=== PATIENT | female | born 1960 | race Caucasian/White ===

== ENCOUNTER → 2017-06-04 | Outpatient (CLI) | payer BC ==
[~2017-06-04] MED LIST: ACET1TAB38 PO; BUPR150T8 PO; ESTR1PAT27 TD
--- NOTE | 2017-06-04 16:21 | DIREP ---
PROCEDURE:CT UPPER EXTREMITY-LT W/O COMPARISON:None. INDICATIONS:LEFT PROXIMAL HUMERUS FX X 5 DAYS TECHNIQUE:Multi-planar CT images of the upper extremity were created without intravenous contrast. FINDINGS: BONES:There is a comminuted fracture involving the proximal humerus. This spares the articular surface of the proximal humerus. There are numerous subcentimeter fragments. Largest fragment is seen laterally, measuring 2.6-2.4 cm in diameter. No intra-articular fragments are identified. Scapula, and distal clavicle are intact. There is an old ununited fracture involving the mid portion of left clavicle clavicle. SOFT TISSUES:Normal. OTHER:Negative. CONCLUSION:Heavily comminuted fracture involving the proximal left humerus, minimally displaced. No intra-articular fragments. Visualized portion of scapula intact. 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 Dictated by: Joe Powell MD on 06/04/2017 at 04:15 PM
== END | disposition home or self-care (01) ==
LOC: RAD 11:03
PROVIDERS: ATTEND Orthopaedic Surgery
DX: S42.292D Other displaced fracture of upper end of left humerus, subsequent encounter for fracture with routine healing (principal); X58.XXXD Exposure to other specified factors, subsequent encounter
CPT/HCPCS: 73200

== ENCOUNTER → 2017-06-05 | Day surgery (SDC) | payer BC ==
[2017-06-04 14:12] LABS: HEMOGLOBIN 10.8 g/dL (12.0-15.0); MEAN CELL HGB 30.2 pg (26-34); MEAN CELL HGB CONCENTRATION 32.5 g/dL (33-37); MEAN CORP VOLUME 92.7 fL (78-100); MEAN PLATELET VOLUME 9.3 fL (7.8-11.0); RED CELL DISTRIBUTION WIDTH 13.1 % (11.5-14.5); WHITE BLOOD CELL 5.8 10^3/uL (4.5-11.0)
--- NOTE | 2017-06-04 14:29 | PCM.EKG ---
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
[2017-06-04 14:44] LABS: CALCIUM 8.7 mg/dL (8.4-10.5); CARBON DIOXIDE 26.1 mmol/L (20.0-32)
[~2017-06-05] VITALS: Ht 165.1 cm; Wt 63.5 kg
[2017-06-05] VITALS (12 sets, daily range): BP systolic 117–146; BP diastolic 71–95
[~2017-06-05] MED LIST changes: +ANCEF ONE; +DECADRON ONE; +DEMEROL ONE; +DIPRIVAN IV ONE; +DURAMORPH ONE; +LACTATED RINGERS 1,000 ML IV SCH; +LIDOCAINE 2% VIAL ONE; +LOPRESSER ONE; +MORPHINE SULFATE IV PRN; +NAROPIN 0.5% 5 MG/ML VIAL ONE; +NEOSTIGMINE ONE; +NS 100ML 100 ML IV ONE; +PHENERGAN IV PRN; +QUELICIN ONE; +SODIUM CHLORIDE IR ONE; +SUBLIMAZE IV PRN; +SUBLIMAZE ONE; +TORADOL ONE; +VERSED ONE; +ZEMURON IV ONE; +ZOFRAN ONE
[2017-06-05] MEDS: DEMEROL IV PRN ×2 (11:58→12:14)
--- NOTE | 2017-06-05 12:17 | OPH ---
DATE OF SURGERY: 06/05/2017 PREOPERATIVE DIAGNOSIS: Displaced left proximal humerus fracture. POSTOPERATIVE DIAGNOSIS: Displaced left proximal humerus fracture. OPERATIVE PROCEDURE: Open reduction and internal fixation of left proximal humerus fracture using the Synthes 2-hole proximal humeral locking plate. SURGEON: Jair Foster MD ANESTHESIA: General endotracheal. BLOOD LOSS: 200 mL. DRAINS: None. DESCRIPTION OF INDICATIONS: The patient is a 56-year-old female. She fell approximately a week ago at home and suffered a displaced left proximal humerus fracture. The patient's neurovascular exam was normal. A CT scan showed a fracture through the anatomic neck as well as a displaced greater tuberosity fracture. She was taken to the operating room for open reduction and internal fixation. DESCRIPTION OF PROCEDURE: The patient was placed on the operating table in the supine position. General endotracheal anesthetic was induced without difficulty. The patient was placed in the beach chair position. Left upper extremity was then sterilely prepped and draped. A deltopectoral incision was made about the left shoulder. The incision was taken through the skin and the subcutaneous tissues. The patient had the bleeding controlled with cautery. The deltopectoral interval was identified and the vein was taken laterally. The patient then had the fracture exposed. Any hematoma was removed with a curette. The wounds were copiously irrigated. We placed #2 FiberWire sutures through the rotator cuff about the greater tuberosity. The fracture was then reduced. The C-arm views showed satisfactory reduction of the fracture. We placed a 2-hole proximal humeral plate laterally. We used a single 3.5 cortical screw in the oblong hole in the shaft. AP and lateral views showed satisfactory height of the plate. The patient then had a single 4.0 cancellous screw placed into the humeral head to bring the plate down to the bone. AP and lateral views showed satisfactory positioning of the hardware and satisfactory reduction of the fracture. The patient then had five locking screws placed in the proximal humeral head fragment. A final 3.5 cortical screw was placed distally. The final construct showed good reduction of the fracture and appropriate hardware position. The FiberWire suture was then tied over the plate. The wounds were irrigated. The deltopectoral interval was closed with 0 Vicryl in a running manner. The subcutaneous was closed with a barbed 2-0 Monocryl in a running manner and then the skin was closed with Dermabond. A large Aquacel dressing was applied. The patient was extubated in the operating room, sent to recovery in stable condition. Jair Foster MD DR: ANIBAL/lasha JOB# [id number]
--- NOTE | 2017-06-05 12:39 | DIREP ---
PROCEDURE:XRAY SHOULDER MIN 2 VWS-LT COMPARISON:[facility], , XRAY SHOULDER 1 VW-LT, 05/31/2017, 11:23 AM. INDICATIONS:S/P ORIF LEFT SHOULDER FINDINGS: BONES:Interval reduction of left humeral head and neck fractures by a plate and transverse screws. 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 JOINTS:Normal glenohumeral and acromioclavicular joints. No evidence for dislocation. SOFT TISSUES:Normal. OTHER:Normal. CONCLUSION:ORIF of left proximal humeral fracture. Dictated by: Marilyn Francisco MD on 06/05/2017 at 12:36 PM
== END | disposition home or self-care (01) | DRG 563 ==
LOC: SURG 03:19
PROVIDERS: ATTEND Orthopaedic Surgery
DX: S42.202A Unspecified fracture of upper end of left humerus, initial encounter for closed fracture (principal); Z87.891 Personal history of nicotine dependence; Z79.899 Other long term (current) drug therapy; Z98.890 Other specified postprocedural states; Z90.710 Acquired absence of both cervix and uterus; Z83.3 Family history of diabetes mellitus; Z80.0 Family history of malignant neoplasm of digestive organs; Z72.89 Other problems related to lifestyle; W19.XXXA Unspecified fall, initial encounter; Y93.89 Activity, other specified; Y92.89 Other specified places as the place of occurrence of the external cause; Y99.8 Other external cause status
CPT/HCPCS: 23615; 36415; 64415; 73030; 76000; 80053; 85027; 93005; A4649 ×5; J0330; J0690; J1100 ×2; J1885; J2001 ×2; J2175; J2250 ×2; J2405; J2795; J3010; J3490 ×3; J7030; J7050 ×2; C1713; J2274; J2710

== ENCOUNTER → 2017-12-25 | Outpatient (CLI) | payer BC ==
[~2017-12-25] MED LIST changes: -ANCEF ONE; -DECADRON ONE; -DEMEROL ONE; -DIPRIVAN IV ONE; -DURAMORPH ONE; -LACTATED RINGERS 1,000 ML IV SCH; -LIDOCAINE 2% VIAL ONE; -LOPRESSER ONE; -MORPHINE SULFATE IV PRN; -NAROPIN 0.5% 5 MG/ML VIAL ONE; -NEOSTIGMINE ONE; -NS 100ML 100 ML IV ONE; -PHENERGAN IV PRN; -QUELICIN ONE; -SODIUM CHLORIDE IR ONE; -SUBLIMAZE IV PRN; -SUBLIMAZE ONE; -TORADOL ONE; -VERSED ONE; -ZEMURON IV ONE; -ZOFRAN ONE
--- NOTE | 2017-12-25 14:55 | DIREP ---
PROCEDURE:XR SPINE CERVICAL 2 OR 3 VIEWS COMPARISON:[facility], , SPINE CERVICAL 2 VIEW, 01/12/2014, 05:01 PM. INDICATIONS:PAIN IN LT SHOULDER TECHNIQUE:AP, lateral, and dens views of the cervical spine are provided. FINDINGS: ALIGNMENT:Loss of cervical lordosis. VERTEBRAE:Placement of bone graft at C4-5 along with anterior cervical discectomy with fusion at C4-5. DISK SPACES:Mild ventral osteophyte formation with mild of the intervertebral disc space at C3-4. CERVICAL RIBS:None. OTHER:Normal. CONCLUSION:Surgical changes. Hardware intact, no significant interval change or superimposed acute findings Dictated by: Joe Powell MD on 12/25/2017 at 02:49 PM
--- NOTE | 2017-12-25 15:14 | DIREP ---
PROCEDURE:XRAY SPINE LUMBAR 2-3 VWS COMPARISON:None. INDICATIONS:LOW BACK PAIN TECHNIQUE:AP, lateral, and coned down lateral views of the lumbar spine are provided. FINDINGS: ALIGNMENT:Normal. VERTEBRAE:No compression deformity is seen. Mild anterior spurring is seen at L5-S1. DISK SPACES:Disc space narrowing is seen at L5-S1. SPONDYLOLISTHESIS:None. SACROILIAC JOINTS:Normal. OTHER:Normal. CONCLUSION:Mild degenerative changes with disc space narrowing are seen at L5-S1. Dictated by: Eladio Huratdo M.D. on 12/25/2017 at 03:11 PM
--- NOTE | 2017-12-25 15:54 | DIREP ---
PROCEDURE:XRAY SHOULDER MIN 2 VWS-LT COMPARISON:[facility], , XRAY SHOULDER MIN 2 VWS-LT, 06/05/2017, 11:57 AM. INDICATIONS:CERVICALGIA FINDINGS: BONES:No acute fracture is seen. An old nonunited left clavicle fracture appears unchanged since 06/05/2017. The patient has undergone ORIF of a fracture of the proximal humerus with internal fixation plate and screws unchanged since 06/05/2017. JOINTS:Normal glenohumeral and acromioclavicular joints. No evidence for dislocation. SOFT TISSUES:Normal. OTHER:Normal. CONCLUSION: 1. Status post ORIF fracture of the proximal left humerus with internal fixation plate and screws in good position and unchanged since 06/05/2017. 2. Nonunited left clavicle fracture appears unchanged since 06/05/2017 as well. 3. No acute fracture or dislocation is seen. Dictated by: Jalen Gamboa M.D. on 12/25/2017 at 03:51 PM
== END | disposition home or self-care (01) ==
LOC: RAD 13:46
PROVIDERS: ATTEND Nurse Practitioner
DX: M47.897 Other spondylosis, lumbosacral region (principal); M48.07 Spinal stenosis, lumbosacral region; M25.512 Pain in left shoulder; M43.22 Fusion of spine, cervical region; M25.78 Osteophyte, vertebrae; Z90.710 Acquired absence of both cervix and uterus
CPT/HCPCS: 72040; 72100; 73030-LT

== ENCOUNTER → 2018-01-19 | Outpatient (CLI) | payer BC ==
--- NOTE | 2018-01-19 12:17 | DIREP ---
PROCEDURE:CT PELVIS W/O COMPARISON:None. INDICATIONS:W10.8XXD FALL STAIRS AND STEPS, M54.9 DORSALGIA, M53.88 DORSOPATHIES TECHNIQUE:Axial images were created through the pelvis without intravenous contrast material. No oral contrast was administered. Sagittal and coronal reconstructions were performed from source images. FINDINGS: AORTA/VASCULAR:Normal. No aneurysm. RETROPERITONEUM:Normal. No mass or adenopathy. BOWEL/MESENTERY:Normal. There is no intestinal obstruction, free fluid, free air or mesenteric inflammatory changes. ABDOMINAL WALL:Normal. No mass or hernia. PELVIC ORGANS:The uterus is absent. BONES:Normal for age. No bony lesion or acute fracture. OTHER:A vacuum disc is incidentally noted at L5-S1. CONCLUSION:No fracture is demonstrated. Both hip joints and sacroiliac joints are normal. Dictated by: Eladio Hurtado M.D. on 01/19/2018 at 12:13 PM
== END | disposition home or self-care (01) ==
LOC: CT 08:59
PROVIDERS: ATTEND Internal Medicine
DX: M53.88 Other specified dorsopathies, sacral and sacrococcygeal region (principal); M54.9 Dorsalgia, unspecified; W10.8XXD Fall (on) (from) other stairs and steps, subsequent encounter; X58.XXXD Exposure to other specified factors, subsequent encounter
CPT/HCPCS: 72192

== ENCOUNTER → 2018-06-24 | Outpatient (CLI) | payer BC ==
--- NOTE | 2018-06-24 12:48 | DIREP ---
PROCEDURE: CT SPINE LUMBAR W/O TECHNIQUE:Axial cuts were obtained through the lumbar spine. The images were viewed at bone settings. COMPARISON:None. INDICATIONS:M54.5 LOW BACK PAIN, M51.37 INTERVERTEBRAL DISC DEBENERATION FINDINGS: ALIGNMENT:Normal. VERTEBRAE:Endplate degenerative changes at L5-S1. No compression fracture. PARASPINAL AREA:Normal. OTHER:Colonic diverticulosis. Aortic and major branch atherosclerotic calcifications. LUMBAR DISC LEVELS T12-L1:Normal. L1-L2:Mild facet arthropathy. No central canal or neural foraminal stenosis. L2-L3:Mild facet arthropathy. No central canal or neural foraminal stenosis L3-L4:Mild facet arthropathy. No central canal or neural foraminal stenosis. L4-L5:Mild facet arthropathy. No central canal or neural foraminal stenosis L5-S1:Mild facet arthropathy. Severe disc space narrowing. Dorsal broad-based disc osteophyte bulge extending into the floor of the neural foramina. Combined with facet arthropathy there is moderate bony narrowing of the neural foramina. CONCLUSION: Broad-based L5-S1 dorsal disc osteophyte bulge contributing to moderate bilateral neural foraminal narrowing. Dictated by: Pranav Bartholomew M.D. on 06/24/2018 at 12:42 PM
== END | disposition home or self-care (01) ==
LOC: RAD 08:22
PROVIDERS: ATTEND Internal Medicine
DX: M47.817 Spondylosis without myelopathy or radiculopathy, lumbosacral region (principal); M51.37 Other intervertebral disc degeneration, lumbosacral region; M48.07 Spinal stenosis, lumbosacral region; M25.78 Osteophyte, vertebrae; K57.30 Diverticulosis of large intestine without perforation or abscess without bleeding; I70.0 Atherosclerosis of aorta
CPT/HCPCS: 72131

== ENCOUNTER 2021-04-03 10:18 | Emergency (ER) | payer BC, OTHER ==
[~2021-04-03] VITALS: Ht 167.6 cm; Wt 65.8 kg
[2021-04-03 10:18] VITALS: BP_SYST 144; BP_SYST 151; BP_DIAS 94; BP_DIAS 95
[2021-04-03] MEDS ORDERED: ASPIRIN EC PO STA (10:36)
[2021-04-03] MEDS ORDERED: ASPIRIN ONE (10:40)
--- NOTE | 2021-04-03 10:51 | ER.PDOC ---
General Chief Complaint: Chest Pain-Cardiac Nature Stated Complaint: CP/SOB Time seen by MD: 10:50 Source: patient Exam Limitations: no limitations History of Present Illness Initial Comments Intermittent chest pain and shortness of breath for 2 weeks. Current pain started 4 days ago and radiates to the back. No nausea, vomiting or diaphoresis. Severity/Quality: moderate, sharp Radiation: back Activities at Onset: none Nitro Today/Relief: 0.4 mg x 1 Aspirin Today: 81 mg x 1, 81 mg x 3, Provided At Home, Provided By ED Associated Symptoms: shortness of breath Allergies: Coded Allergies: No Known Allergies (Unverified , 06/04/17) Home Meds Reported Medications Acetaminophen With Codeine (TYLENOL-COD #4 TABLET) 1 Each Tablet, 1 EACH PO Q4H PRN for PAIN, #30 TAB 06/04/17 Estradiol (ESTRADIOL) 1 Each Patch.tdwk, 1 EACH TD TWICE A WEEK 06/04/17 Bupropion Hcl (WELLBUTRIN SR) 150 Mg Tablet.er, 1 TAB PO BID, #60 TAB 5 Refills 06/04/17 Past Medical History Medical History: other Surgical History: no surgical history Family History Significant Family History: no pertinent family hx Social History Smoking: greater than 1 pack/day Alcohol Use: occassionally Drug Use: none Constitutional: no symptoms reported EENTM: no symptoms reported Respiratory: see HPI Cardiovascular: see HPI Gastrointestinal: no symptoms reported All Other Systems: Reviewed and Negative Physical Exam General Appearance: No Apparent Distress, WD/WN HEENT: PERRL/EOMI Neck: Non-Tender, Full Range of Motion, Supple, Normal Inspection Respiratory: chest non-tender, lungs clear, normal breath sounds, no respiratory distress, no accessory muscle use Cardiovascular: Normal Peripheral Pulses, Regular Rate, Rhythm, No Edema, No Gallop, No JVD, No Murmur Gastrointestinal: Normal Bowel Sounds, No Organomegaly, No Pulsatile Mass, Non Tender, Soft Extremities: Normal Range of Motion, Non-Tender, Normal Inspection, No Pedal Edema, No Calf Tenderness, Normal Capillary Refill 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 (04/03/21 10:31) D-Dimer (04/03/21 10:31) Xr Chest 1v (04/03/21 10:31) Ekg-Routine (04/03/21 10:31) Troponin I High Sensitivity (04/03/21 10:31) Basic Metabolic Panel (04/03/21 10:31) Covid19 Antigen Gabrielle Domi (04/03/21 10:36) Aspirin (Aspirin Ec) (04/03/21 10:36) Nitroglycerin (Nitrostat) (04/03/21 11:00) Aspirin (Aspirin) (04/03/21 10:40) Troponin I High Sensitivity (04/03/21 12:42) Ekg-Routine (04/03/21 12:42) Vital Signs Date Time Temp Pulse Resp B/P (MAP) Pulse Ox O2 Delivery O2 Flow Rate FiO2 04/03/21 10:18 97.8 18 18 04/03/21 10:18 98.7 88 20 100 04/03/21 10:18 97.8 18 18 144/95 (111) 100 Room Air Administered Medications Medications (Trade) Dose Ordered Sig/Shira Route PRN Reason Start Time Stop Time Status Last Admin Dose Admin Aspirin (Aspirin Ec) 243 mg STAT STAT PO 04/03/21 10:36 04/03/21 10:37 DC 04/03/21 10:45 243 MG Nitroglycerin (Nitrostat) 0.4 mg PRN PRN SL CHEST PAIN 04/03/21 11:00 05/03/21 10:59 04/03/21 10:39 0.4 MG Laboratory Tests Test 04/03/21 10:45 04/03/21 12:51 White Blood Count 7.6 10^3/uL (4.5-11.0) Red Blood Count 4.30 10^6/uL (4.00-5.20) Hemoglobin 13.8 g/dL (12.0-15.0) Hematocrit 41.8 % (36.0-46.0) Mean Corpuscular Volume 97.2 fL (78-100) Mean Corpuscular Hemoglobin 32.1 pg (26-34) Mean Corpuscular Hemoglobin Concent 33.0 g/dL (33-36.5) Red Cell Distribution Width 13.1 % (11.5-14.5) Platelet Count 316 10^3/uL (150-400) Mean Platelet Volume 9.3 fL (7.8-11.0) Neutrophils (%) (Auto) 58.0 % (41.0-85.0) Lymphocytes (%) (Auto) 34.3 % (24.0-44.0) Monocytes (%) (Auto) 5.5 % (5.0-12.0) Neutrophils # (Auto) 4.4 10^3/uL (1.8-7.7) Lymphocytes # (Auto) 2.62 10^3/uL1 (1.0-4.8) Monocytes # (Auto) 0.4 10^3/uL (0.3-0.8) Absolute Immature Granulocyte (auto 0.01 10^3 u/L (0-2) Absolute Eosinophils (auto) 0.1 10^3/uL (0.0-0.2) Immature Granulocytes % 0.10 % (0.00-0.50) Eosinophils % 1.4 % (0.0-5.0) Basophils % 0.7 % (0.0-0.2) H Basophils # 0.1 10^3/uL (0.0-0.1) Prothrombin Time 11.2 SEC (9.6-12.0) Prothrombin Time INR (Non-Therap) 1.0 Activated Partial Thromboplast Time 25.6 SEC (24.67-30.72) D-Dimer 0.47 mg/L (0.19-0.49) Sodium Level 141 mmol/L (132-145) Potassium Level 3.7 mmol/L (3.6-5.2) Chloride Level 105.0 mmol/L (96-109) Carbon Dioxide Level 23.8 mmol/L (20.0-32) Glucose Level 109 mg/dL (70-110) Blood Urea Nitrogen 14 mg/dL (7-18) Creatinine 0.79 mg/dL (0.59-1.40) Calcium Level 9.2 mg/dL (8.4-10.5) Anion Gap 15.9 Estimated GFR () 90.4 (>/=60) Est GFR (CKD-EPI)(Non-Afr Swiss) 74.7 (>/=60) BUN/Creatinine Ratio 17.0 Total Creatine Kinase 60 U/L (26-192) Creatine Kinase MB 1.2 ng/mL (0.5-3.6) Troponin I High Sensitivity 6 ng/L (0-50) 7 ng/L (0-50) Pro-B-Type Natriuretic Peptide 104 pg/mL (0-125) SARS-CoV-2 Antigen (Rapid) NEGATIVE (NEGATIVE) Progress Progress COVID-19 antigen is negative, chemistry, CBC and 2 troponins 2 hours apart are normal. BNP is 104. D-dimer is 0.47. Patient is currently pain-free. She has had this ongoing problem before [place]. She is feeling better to go home. I counseled her to see Dr. Robins in 1 to 2 days. She will need to call for appointment. She voiced understanding. She is stable in her vital signs and she feels good to go home. I instructed her to return to the ED if worsening symptoms or concerns. She voices understanding. EKG/XRAY/CT/US EKG: NSR, no ST T wave changes EKG Comments: HR 88, normal P axis XRAY: chest (No active disease) ER DEPART Departure Time of Disposition: 14:12 Disposition: 01 HOME / SELF CARE / HOMELESS Impression: Primary Impression: Nonspecific chest pain Condition: Improved Referrals: EDI ODEN MD (PCP) PRIMARY CARE PROVIDER Additional Instructions: Follow-up with your PCP tomorrow Follow-up with Dr. Robins in 1 to 2 days Return to ED if worsening symptoms or concerns Duration or Time Spent with Pa: 60 min JACOBY DOVE MD Apr 03, 2021 10:51
[2021-04-03 11:00] LABS: BASOPHIL # 0.1 10^3/uL (0.0-0.1); BASOPHIL % 0.7 % (0.0-0.2); EOSINOPHIL # 0.1 10^3/uL (0.0-0.2); EOSINOPHIL % 1.4 % (0.0-5.0); LYMPHOCYTES # 2.62 10^3/uL1 (1.0-4.8); LYMPHOCYTES % 34.3 % (24.0-44.0); MEAN CORP HGB 32.1 pg (26-34); MONOCYTES # 0.4 10^3/uL (0.3-0.8); MONOCYTES % 5.5 % (5.0-12.0); NEUTROPHIL # 4.4 10^3/uL (1.8-7.7); RED CELL DISTRIBUTION WIDTH 13.1 % (11.5-14.5)
[2021-04-03] MEDS ORDERED: NITROSTAT SL PRN (11:00)
[2021-04-03 11:16] LABS: CARBON DIOXIDE 23.8 mmol/L (20.0-32)
--- NOTE | 2021-04-03 11:19 | PCM.EKG ---
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
[2021-04-03] MEDS ORDERED: NITROSTAT SL ONE (11:49)
--- NOTE | 2021-04-03 11:49 | DIREP ---
PROCEDURE:CHEST 1 VIEW COMPARISON:[facility], , CHEST 2 VIEW, 01/12/2014, 04:53 PM. INDICATIONS:Chest pain FINDINGS: LUNGS/PLEURA:COPD changes. No consolidation or pleural effusion. CARDIAC:Normal size cardiac silhouette and normal vascularity. MEDIASTINUM:Normal. BONES:Old fracture of the left clavicle noted. Internal fixation of the proximal left humerus. OTHER:No additional findings. CONCLUSION:No acute consolidation or pleural effusion. Dictated by: Flo Rivas MD on 04/03/2021 at 11:39 AM
--- NOTE | 2021-04-03 14:00 | NUR ---
IV 20G IV REMOVED FROM L FA, CATHETER INTACT.
== END 2021-04-03 14:20 | disposition home or self-care (01) ==
LOC: ER 10:18
DX: R07.9 Chest pain, unspecified (principal); R06.02 Shortness of breath; Z20.822 Contact with and (suspected) exposure to COVID-19; Z79.82 Long term (current) use of aspirin; Z79.899 Other long term (current) drug therapy
CPT/HCPCS: 36415; 71045; 80048; 82550; 82553; 83880; 84484; 85025; 85379; 85610; 85730; 87426; 93005; 99285